=== PATIENT | female | born 2000 | race Hispanic/Latino ===

== ENCOUNTER 2019-12-22 08:34 | Emergency (ER) | payer OTHER ==
[~2019-12-22] VITALS: Ht 162.6 cm; Wt 74.8 kg
[2019-12-22] MEDS ORDERED: ONDANSETRON HCL 4 MG ORAL DISINTEGRATING TAB PO ONE (08:45)
[2019-12-22] MEDS ORDERED: ONDANSETRON HCL 4 MG ORAL DISINTEGRATING TAB ONE (08:51)
[2019-12-22] MEDS ORDERED: ZOFRAN4 MG SL (09:00)
[2019-12-22 09:27] LABS: CLARITY,URINE CLEAR (CLEAR); COLOR,URINE YELLOW (YELLOW)
[2019-12-22 09:28] LABS: BILIRUBIN,URINE SMALL (NEGATIVE); LEUKOCYTE ESTERASE ,URINE TRACE (NEGATIVE); NITRITE,URINE NEGATIVE (NEGATIVE); PROTEIN,URINE DIPSTICK 1+ (NEGATIVE); URINE UROBILINOGEN 0.2 mg/dL (0.2 - 1)
[2019-12-22 09:31] LABS: KETONES,URINE 2+ (NEGATIVE)
[2019-12-22 09:37] VITALS: BP 13/72
[2019-12-22 09:56] LABS: BACTERIA,URINE RARE /HPF; EPITHELIAL CELLS,URINE FEW /LPF; RBC,URINE 0-5 /HPF (0-5); WBC,URINE (MAN) 0-5 /HPF (0-5)
[2019-12-22] MEDS ORDERED: MACROBID 100 M100 MG PO (10:00)
--- NOTE | 2019-12-24 16:31 | Emergency Department Note ---
History of Present Illnes History of Present Illness Chief Complaint: General Medicine Complaints Stated Complaint: VOMITING,RASH AROUND MOUTH,HEADACHE,NAUSEA History of Present Illness This is a 19 year old female arrived for redness around lips that worse after vomiting. Pt states she is 12 weeks pregnany by [place]- admits to nausea worse in the morning but is able to hold food down. Chief Complaint Comment HERE FOR MORNING SICKNESS AND VOMITING, ALSO HAS RED SPOTS TO FACE FROM VOMITING. ALSO FEELS TIRED DUE TO NAUSEA/VOMITING. CURRENTLY IN FIRST [facility]IME[facility]. Historian: Patient Log Chain Feeder Required: No Onset (how long ago): day(s) Severity: moderate Timing of current episode: intermittent, other (after vomiting ) Progression: waxing and waning Context: other ( ) Associated symptoms: denies other symptoms Treatments prior to arrival: none Past Medical/Family History Physician Review I have reviewed the patient's past medical and family history. Any updates have been documented here. Past Medical History Recent Fever: No Clinical Suspicion of Infectio: No New/Unexplained Change in Ment: No Past Medical History: None Past Surgical History: None Social History Smoking Cessation: Never Smoker Alcohol Use: None Any Illegal Drug Use: No Physically hurt or threatened: No Other Any Pre-Existing Lines (PICC,: No Is patient up to date on immun: No Review of Systems Review of Systems Constitutional: no symptoms EENTM: no symptoms Cardiovascular: no symptoms Gastointestinal/Abdominal: no symptoms Genitourinary: no symptoms Musculoskeletal: no symptoms Integumentary: no symptoms, change in color, rash Neurological: no symptoms Psychological: no symptoms Endocrine: no symptoms Hematological/Lymphatic: no symptoms Review of other systems All other systems reviewed and negative. Physical Exam Related Data Allergies: Coded Allergies: No Known Allergies (Unverified , 12/22/19) Triage Vital Signs Vital Signs Date Time Temp Pulse Resp B/P (MAP) Pulse Ox O2 Delivery O2 Flow Rate FiO2 12/22/19 08:40 96.8 88 16 134/72 97 Physical Exam CONSTITUTIONAL Constitutional: well-developed, well-nourished HENT HENT: normocephalic, atraumatic, oropharynx clear/moist, nose normal HENT - Ear: left ext ear normal, right ext ear normal EYES Eyes: PERRL, conjunctivae normal NECK Neck: ROM normal PULMONARY Pulmonary: effort normal, breath sounds normal CARDIOVASCULAR Cardiovascular: regular rhythm, heart sounds normal, capillary refill normal, normal rate GASTROINTESTINAL Abdominal: soft, nontender, bowel sounds normal GENITOURINARY Genitourinary: exam deferred SKIN Skin: warm, dry, other (perioral rash noted- small petichiae, blacked, flat (not raised), skin intact, no oral involvement, patent airway, no tongue swelling, no lip swelling ) MUSCULOSKELETAL Musculoskeletal: ROM normal NEUROLOGICAL Neurological: alert, oriented x 3, no gross motor or sensory deficits PSYCHOLOGICAL Psychiatric/behavioral: mood/affect normal, judgement normal Critical Care Time Subsequent provider I assumed direction of critical care for this patient from another provider of my specialty. Assessment & Plan Assessment & Plan Problems: (1) Rash and nonspecific skin eruption (2) Morning sickness (3) (4) Nausea and vomiting during (5) UTI (urinary tract infection) Depart Disposition: HOME, SELF-CARE Last Vital Signs Date Time Temp Pulse Resp B/P (MAP) Pulse Ox O2 Delivery O2 Flow Rate FiO2 12/22/19 08:40 96.8 88 16 134/72 97 Home Meds Active Scripts Nitrofurantoin Monohyd/M-Cryst (MACROBID 100 MG CAPSULE) 100 Mg Capsule, 100 MG PO BIDWM for 20 Days, CAP Prov:MAL CACERES DO 12/22/19 Ondansetron Hcl* (ZOFRAN*) 4 Mg Tablet, 4 MG SL Q6H PRN for NAUSEA, #14 MG 0 Refills Prov:MAL CACERES DO 12/22/19 Medications in the ED Ondansetron HCl 4 mg STK-MED ONCE .ROUTE ; Start 12/22/19 at 08:51; Stop 12/22/19 at 08:46; Status DC Ondansetron HCl 4 mg ONCE ONCE PO Last administered on 12/22/19at 09:01; Admin Dose 4 MG; Start 12/22/19 at 08:45; Stop 12/22/19 at 08:54; Status DC MAL CACERES DO December 22, 2019 09:18
== END 2019-12-22 10:08 | disposition home or self-care (01) ==
LOC: ER 08:34
DX: O26.891 Other specified pregnancy related conditions, first trimester (principal); O23.41 Unspecified infection of urinary tract in pregnancy, first trimester; O21.9 Vomiting of pregnancy, unspecified; R21 Rash and other nonspecific skin eruption
CPT/HCPCS: 81001; 99282; Q0162